=== PATIENT | female | born 1980 | race Caucasian/White ===

== ENCOUNTER 2018-02-23 06:46 | Emergency (ER) | payer MEDICAID ==
[~2018-02-23] VITALS: Ht 165.1 cm; Wt 81.0 kg
[2018-02-23 06:49] VITALS: BP 153/39
== END 2018-02-23 11:15 | disposition left against medical advice (07) ==
LOC: ER 06:47
DX: R07.89 Other chest pain (principal); Z53.21 Procedure and treatment not carried out due to patient leaving prior to being seen by health care provider
CPT/HCPCS: 93005; 99281

== ENCOUNTER 2020-09-08 01:29 | Emergency (ER) | payer MEDICAID ==
[~2020-09-08] VITALS: Ht 162.6 cm; Wt 70.0 kg
[2020-09-08 01:36] VITALS: BP 117/76
--- NOTE | 2020-09-08 01:54 | NUR ---
DR. MCGEE AT BEDSIDE TRYING TO ASSESS PATIENT, PATIENT YELLING OUT BAD WORDS NOT ANSWERING QUESTIONS WHEN ASKED BY
[2020-09-08] MEDS ORDERED: OLANZapine 5mg rapidly disint. tablet PO ONE ×2 (01:55→02:10)
[2020-09-08] MEDS ORDERED: MIDAZolam 5mg/ml 2ml vial IM ONE (02:20)
[2020-09-08] MEDS ORDERED: BAC10T PO (02:26)
[2020-09-08 02:43] LABS: BASOPHILS % (AUTO) 0.5 % (0-1); EOSINOPHILS # (AUTO) 0.2 X10'3 (0-0.9); EOSINOPHILS % (AUTO) 1.8 % (0-6); HEMATOCRIT 45.1 % (35.0-45.0); HEMOGLOBIN 15.3 g/dl (12.0-16.0); LYMPHOCYTES # (AUTO) 2.1 X10'3 (1.1-4.8); LYMPHOCYTES % (AUTO) 22.4 % (21-51); MEAN CORPUSCULAR HEMOGLOBIN 33.7 PG (27.0-31.0); MEAN CORPUSCULAR VOLUME 99.1 FL (78-98); MEAN PLATELET VOLUME 9.8 FL (7.4-10.4); MONOCYTES # (AUTO) 1.1 X10'3 (0-0.9); MONOCYTES % (AUTO) 11.7 % (2-12); NEUTROPHILS # (AUTO) 5.9 X10'3 (1.8-7.7); NEUTROPHILS % (AUTO) 63.6 % (42-75); PLATELET COUNT 292 X10'3 (140-440); RED BLOOD COUNT 4.55 X10'6 (4.20-5.60); RED CELL DISTRIBUTION WIDTH 13.9 % (11.5-14.5); WHITE BLOOD COUNT 9.3 X10'3 (4.5-11.0)
[2020-09-08 02:47] LABS: URINE AMPHETAMINE SCREEN NEGATIVE (Neg); URINE BARBITUATE SCREEN NEGATIVE (Neg); URINE BENZODIAZEPINES SCREEN NEGATIVE (Neg); URINE CANNABINOID SCREEN POSITIVE (Neg); URINE COCAINE SCREEN NEGATIVE (Neg); URINE METHADONE SCREEN NEGATIVE (Neg); URINE OPIATE SCREEN NEGATIVE (Neg); URINE PHENCYCLIDINE SCREEN NEGATIVE (Neg)
--- NOTE | 2020-09-08 02:47 | NUR ---
patient provided a sandwich and juice
[2020-09-08 02:48] LABS: URINE HCG NEGATIVE (NEG)
[2020-09-08 02:51] LABS: ANION GAP 9 (8-16); BILIRUBIN,TOTAL 0.5 MG/DL (0.1-1.0); BLOOD UREA NITROGEN 13 MG/DL (7-18); BUN/CREATININE RATIO 19.4 (6.6-38.0); CALCIUM 9.6 MG/DL (8.5-10.1); CHLORIDE 102 MMOL/L (99-107); CREATININE 0.67 MG/DL (0.40-0.90); GLUCOSE 109 MG/DL (70-104); POTASSIUM 3.5 MMOL/L (3.5-5.1); SODIUM 135 MMOL/L (135-145); TOTAL CARBON DIOXIDE 24.1 MMOL/L (24-32); TOTAL PROTEIN 8.2 G/DL (6.4-8.2); eGFR > 90 ML/MIN
[2020-09-08 02:52] LABS: ALANINE AMINOTRANSFERASE 38 U/L (12-78); ALBUMIN 4.3 G/DL (3.4-5.0); ALBUMIN/GLOBULIN RATIO 1.1 (1.1-1.5); ALKALINE PHOSPHATASE 58 IU/L (46-116); ASPARTATE AMINO TRANSFERASE 29 U/L (10-37)
[2020-09-08 03:01] LABS: ETHANOL < 0.010 GM/DL (0.0-0.010)
--- NOTE | 2020-09-08 03:28 | NUR ---
patient in bed eyes closed covers on rr even un labored hob 30 degrees noobservable s/s of acute stress at this time will continue to monitor
--- NOTE | 2020-09-08 04:32 | NUR ---
patient in bed supine eyes closed knees bent rr even un labored no observable s/s of acute stress at this time will continue to monitor
--- NOTE | 2020-09-08 06:12 | NUR ---
patient still in bed covers on supine eyes closed rr even un labored no observable s/s of acute stress at this time will continue to monitor
--- NOTE | 2020-09-08 06:19 | NUR ---
sbar to yefri motta no questions or concerns after assuming care
--- NOTE | 2020-09-08 06:33 | NUR ---
PACKET SENT TO [facility]
--- NOTE | 2020-09-08 06:59 | NUR ---
PT SLEEPING QUIETLY AT THIS TIME.
--- NOTE | 2020-09-08 07:45 | NUR ---
pt father star called [phone]. hes talking with pt now.
[2020-09-08] MEDS ORDERED: baclofen 10mg tablet PO SCH (08:00)
--- NOTE | 2020-09-08 09:18 | NUR ---
Pt sister called, attempted to give pt phone to speak with her. Pt then threw phone across room.
--- NOTE | 2020-09-08 09:20 | NUR ---
Pt pacing in her room. Asking for her belongings and phone. Stating she "is ready to leave".
--- NOTE | 2020-09-08 09:31 | NUR ---
Pt requesting breakfast. Meal request form faxed to dietary.
--- NOTE | 2020-09-08 10:55 | NUR ---
[facility] AT BEDSIDE
== END 2020-09-08 12:03 | disposition home or self-care (01) ==
LOC: ER 01:30
DX: R46.2 Strange and inexplicable behavior (principal); R45.1 Restlessness and agitation; Z98.890 Other specified postprocedural states; Z79.899 Other long term (current) drug therapy
CPT/HCPCS: 36415; 80053; 80305; 80320; 81025; 84443; 85025; 96372; 99284; J2250

== ENCOUNTER 2023-02-14 13:37 | Emergency (ER) | payer MEDICAID ==
[~2023-02-14] VITALS: Ht 165.1 cm; Wt 61.1 kg
[~2023-02-14 13:37] MED LIST: BAC10T PO
[2023-02-14] MEDS ORDERED: sulfamethoxazole/trimethoprim DS (800/160mg) tablet PO ONE (14:40)
[2023-02-14] MEDS ORDERED: CefTRIAXone 2gm/D5W 50ml BAG 50 ML IV ONE (14:40)
[2023-02-14 15:11] LABS: BASOPHILS % (AUTO) 0.2 % (0-1); EOSINOPHILS % (AUTO) 0.2 % (0-6); HEMATOCRIT 44.3 % (35.0-45.0); HEMOGLOBIN 15.1 g/dl (12.0-16.0); LYMPHOCYTES # (AUTO) 1.1 X10'3 (1.1-4.8); LYMPHOCYTES % (AUTO) 11.1 % (21-51); MEAN CORPUSCULAR HGB CONC 34.1 g/dL (33.0-36.5); MEAN CORPUSCULAR VOLUME 93.9 FL (78-98); MONOCYTES # (AUTO) 1.4 X10'3 (0-0.9); NEUTROPHILS # (AUTO) 7.4 X10'3 (1.8-7.7); NEUTROPHILS % (AUTO) 74.5 % (42-75); PLATELET COUNT 236 X10'3 (140-440); RED BLOOD COUNT 4.72 X10'6 (4.20-5.60); WHITE BLOOD COUNT 9.9 X10'3 (4.5-11.0)
[2023-02-14 15:27] LABS: ALANINE AMINOTRANSFERASE 23 U/L (12-78); ALBUMIN 3.7 G/DL (3.4-5.0); ALBUMIN/GLOBULIN RATIO 0.9 (1.1-1.5); ALKALINE PHOSPHATASE 75 IU/L (46-116); ANION GAP 10 (8-16); ASPARTATE AMINO TRANSFERASE 17 U/L (10-37); BILIRUBIN,TOTAL 0.5 MG/DL (0.1-1.0); BLOOD UREA NITROGEN 8 MG/DL (7-18); CALCIUM 9.4 MG/DL (8.5-10.1); CHLORIDE 99 MMOL/L (99-107); CREATININE 0.47 MG/DL (0.40-0.90); GLUCOSE 117 MG/DL (70-104); POTASSIUM 3.5 MMOL/L (3.5-5.1); SODIUM 133 MMOL/L (135-145); TOTAL CARBON DIOXIDE 23.7 MMOL/L (24-32); TOTAL PROTEIN 7.6 G/DL (6.4-8.2); eGFR > 90 ML/MIN
[2023-02-14] MEDS ORDERED: SULF1TAB49 PO (16:00)
[2023-02-14] MEDS ORDERED: LIDOcaine 1% W/epiNEPHrine 1:100,000 20ml vial SQ ONE (16:10)
[2023-02-14] MEDS ORDERED: LIDOCAINE 2%/EPI 1:100,000 inj. Multi-dose 20 ML VIAL SQ ONE (16:10)
[2023-02-14 16:32] VITALS: BP 95/58
[2023-02-14] MEDS ORDERED: HYDR-3973 PO (21:49)
== END 2023-02-14 16:34 | disposition home or self-care (01) ==
LOC: ER 13:38
DX: L02.511 Cutaneous abscess of right hand (principal); L03.113 Cellulitis of right upper limb; Z98.890 Other specified postprocedural states; Z79.899 Other long term (current) drug therapy
CPT/HCPCS: 36415; 80053; 85025; 96365; 99284; J0696

== ENCOUNTER 2024-03-17 23:45 | Inpatient (IN) | payer MEDICAID ==
[~2024-03-17] VITALS: Ht 165.1 cm; Wt 63.0 kg
[~2024-03-17 23:45] MED LIST changes: +HYDR-3973 PO
[2024-03-18] VITALS (9 sets, daily range): BP systolic 83–105; BP diastolic 38–60; PULSE 62–107; RESP 16–19; TEMP 96.9–98.2; O2SAT 95–100
[2024-03-18 01:32] LABS: EOSINOPHILS # (AUTO) 0.2 X10'3 (0-0.9); HEMOGLOBIN 13.9 g/dl (12.0-16.0); MEAN CORPUSCULAR HGB CONC 33.4 g/dL (33.0-36.5); MONOCYTES % (AUTO) 10.1 % (2-12)
[2024-03-18 01:34] LABS: HCG SERUM QL NEGATIVE
[2024-03-18 01:36] LABS: BASOPHILS # (AUTO) 0.1 X10'3 (0-0.2); BASOPHILS % (AUTO) 0.7 % (0-1); EOSINOPHILS % (AUTO) 2.2 % (0-6); HEMATOCRIT 41.7 % (35.0-45.0); LYMPHOCYTES # (AUTO) 1.6 X10'3 (1.1-4.8); LYMPHOCYTES % (AUTO) 14.7 % (21-51); MEAN CORPUSCULAR HEMOGLOBIN 30.9 PG (27.0-31.0); MEAN CORPUSCULAR VOLUME 92.5 FL (78-98); MEAN PLATELET VOLUME 9.8 FL (7.4-10.4); MONOCYTES # (AUTO) 1.1 X10'3 (0-0.9); NEUTROPHILS % (AUTO) 72.3 % (42-75); PLATELET COUNT 262 X10'3 (140-440); RED BLOOD COUNT 4.51 X10'6 (4.20-5.60)
[2024-03-18 01:50] LABS: ALBUMIN 3.9 G/DL (3.4-5.0); ANION GAP 11 (8-16); BLOOD UREA NITROGEN 14 MG/DL (7-18); BUN/CREATININE RATIO 24.1 (10.0-20.0); CALCIUM 8.6 MG/DL (8.5-10.1); CHLORIDE 106 MMOL/L (99-107); CREATININE 0.58 MG/DL (0.40-0.90); ETHANOL < 10 MG/DL (<10); GLUCOSE 121 MG/DL (70-104); SODIUM 144 MMOL/L (135-145); THYROID STIMULATING HORMONE 2.16 ulU/ml (0.34-4.50); TOTAL CARBON DIOXIDE 26.6 MMOL/L (24-32); eCRCL 113 ML/MIN; eGFR > 90 ML/MIN
[2024-03-18] MEDS: normal saline 1000ml 1,000 ML IV ONE (02:53)
[2024-03-18] MEDS: atropine 1 MG/1 ML vial IV ONE (03:36)
[2024-03-18 05:28] LABS: BILIRUBIN,URINE NEGATIVE (Neg); CLARITY,URINE SLIGHTLY CLOUDY (Clear); COLOR,URINE YELLOW (Yellow); GLUCOSE, URINE NEGATIVE (Neg); KETONES,URINE >=80 mg/dl (Neg); LEUKOCYTE ESTERASE ,URINE NEGATIVE (Neg); NITRITES, URINE NEGATIVE (Neg); OCCULT BLOOD,URINE SMALL (Neg); PROTEIN,URINE NEGATIVE (Neg); UROBILINOGEN,URINE 0.2 E.U/dL (0.2-1.0)
[2024-03-18 05:37] LABS: URINE AMPHETAMINE SCREEN POSITIVE (Neg); URINE BARBITUATE SCREEN NEGATIVE (Neg); URINE BENZODIAZEPINES SCREEN NEGATIVE (Neg); URINE CANNABINOID SCREEN POSITIVE (Neg); URINE COCAINE SCREEN NEGATIVE (Neg); URINE METHADONE SCREEN NEGATIVE (Neg); URINE OPIATE SCREEN NEGATIVE (Neg); URINE PHENCYCLIDINE SCREEN NEGATIVE (Neg)
[2024-03-18 05:42] LABS: UA COLLECTION TYPE STRAIGHT CATH
[2024-03-18 05:44] LABS: BACTERIA,URINE NONE SEEN /HPF (Neg); MUCUS STRANDS NONE SEEN /LPF (Neg); RBC,URINE 0-2 /HPF (0-2); SQUAMOUS EPITHELIAL CELL,UR MODERATE /LPF (FEW); WBC,URINE 0-4 /HPF (0-4)
[2024-03-18] MEDS ORDERED: potassium Cl 40MEQ/1/2NS 520ml 520 ML IV PRN (08:05)
[2024-03-18] MEDS ORDERED: magnesium 2GM in 50ml NS 50 ML IV PRN (08:05)
[2024-03-18] MEDS ORDERED: ondansetron/PF 4mg/2ml inj IV PRN (08:05)
[2024-03-18] MEDS ORDERED: magnesium 4gm in 100ml NS 100 ML IV PRN (08:05)
[2024-03-18] MEDS ORDERED: potassium Cl 20 mEq SR tablet PO PRN ×2 (08:05)
[2024-03-18] MEDS ORDERED: mag hydrox/Alum hydrox/simeth 30ml oral suspension PO PRN (08:05)
[2024-03-18] MEDS ORDERED: magnesium Cl slow-release 64mg tablet PO PRN (08:05)
[2024-03-18] MEDS ORDERED: magnesium hydroxide 30ml (MOM) UD suspension PO PRN (08:05)
[2024-03-18] MEDS ORDERED: acetaminophen 325mg tablet PO PRN (08:05)
[2024-03-18] MEDS: normal saline 1000ml 1,000 ML IV SCH (08:54)
[2024-03-18] MEDS: piperacillin/tazo 4.5gm/100ml 100 ML IV ONE (09:16)
[2024-03-18 10:19] LABS: SALICYLATE 4.4 MG/DL (4.0-20.0)
[2024-03-18] MEDS ORDERED: ipratropium/albuterol 3ml nebule NEB PRN (11:20)
[2024-03-18] MEDS ORDERED: albuterol 2.5 MG/3 ML nebule NEB PRN (11:20)
[2024-03-18 12:17] LABS: ETHANOL < 10 MG/DL (<10); SALICYLATE 3.5 MG/DL (4.0-20.0)
[2024-03-18 12:23] LABS: ACETAMINOPHEN < 2.0 UG/ML (10-30)
[2024-03-18] MEDS ORDERED: haloperidol lactate 5mg/ml inj IM PRN (14:05)
[2024-03-18 14:30] LABS: APTT 27 SECONDS (22-32); PROTHROMBIN TIME 10.3 SECONDS (9.0-12.0)
[2024-03-18 14:34] LABS: ALANINE AMINOTRANSFERASE 11 U/L (12-78); ALBUMIN 3.1 G/DL (3.4-5.0); ALKALINE PHOSPHATASE 56 IU/L (46-116); ANION GAP 9 (8-16); ASPARTATE AMINO TRANSFERASE 22 U/L (10-37); BILIRUBIN,TOTAL 0.6 MG/DL (0.1-1.0); BLOOD UREA NITROGEN 9 MG/DL (7-18); BUN/CREATININE RATIO 17.3 (10.0-20.0); CALCIUM 8.2 MG/DL (8.5-10.1); CHLORIDE 108 MMOL/L (99-107); CREATININE 0.52 MG/DL (0.40-0.90); GLUCOSE 91 MG/DL (70-104); POTASSIUM 4.1 MMOL/L (3.5-5.1); SODIUM 143 MMOL/L (135-145); TOTAL CARBON DIOXIDE 26.3 MMOL/L (24-32); TOTAL PROTEIN 6.2 G/DL (6.4-8.2); eCRCL 126 ML/MIN; eGFR > 90 ML/MIN
[2024-03-18] MEDS ORDERED: DULO20CA18 PO (16:03)
[2024-03-18] MEDS ORDERED: CHOL100012 PO (16:03)
[2024-03-18] MEDS ORDERED: BUPR1FIL3 (16:03)
[2024-03-18] MEDS ORDERED: BACL10TA2 PO (16:03)
[2024-03-18] MEDS ORDERED: SERT-433 PO (16:03)
[2024-03-18] MEDS ORDERED: CLON0.1T2 PO (16:03)
[2024-03-18] MEDS ORDERED: ARIP2TAB37 PO (16:03)
[2024-03-18] MEDS ORDERED: BUPR1FIL20 SL (16:03)
[2024-03-18] MEDS: piperacillin/tazo 3.375gm/50ml 50 ML IV SCH (17:35)
[2024-03-18] MEDS: K and/or MAG REPLACEMENT MC SCH (20:00)
[2024-03-18] MEDS: thiamine 100mg/ml 2ml inj. IV SCH (21:00)
[2024-03-18] MEDS: enoxaparin 40mg/0.4ml syringe SQ SCH (21:19)
[2024-03-18] MEDS: Melatonin 3mg tablet PO ONE (21:20)
[2024-03-19 07:00] VITALS: BP 83/35; PULSE 72; RESP 19; TEMP 97.6; O2SAT 99
[2024-03-19 07:02] LABS: BASOPHILS # (AUTO) 0.1 X10'3 (0-0.2); BASOPHILS % (AUTO) 1.1 % (0-1); EOSINOPHILS # (AUTO) 0.2 X10'3 (0-0.9); HEMATOCRIT 34.9 % (35.0-45.0); HEMOGLOBIN 11.8 g/dl (12.0-16.0); LYMPHOCYTES # (AUTO) 2.3 X10'3 (1.1-4.8); LYMPHOCYTES % (AUTO) 46.3 % (21-51); MEAN CORPUSCULAR HEMOGLOBIN 31.8 PG (27.0-31.0); MEAN CORPUSCULAR HGB CONC 33.9 g/dL (33.0-36.5); MONOCYTES # (AUTO) 0.6 X10'3 (0-0.9); MONOCYTES % (AUTO) 12.9 % (2-12); NEUTROPHILS # (AUTO) 1.7 X10'3 (1.8-7.7); NEUTROPHILS % (AUTO) 34.7 % (42-75); PLATELET COUNT 228 X10'3 (140-440); RED BLOOD COUNT 3.71 X10'6 (4.20-5.60); RED CELL DISTRIBUTION WIDTH 13.8 % (11.5-14.5)
[2024-03-19 07:15] LABS: APTT 27 SECONDS (22-32)
[2024-03-19 07:26] LABS: LARGE PLATELETS FEW; PLATELET ESTIMATE NORMAL
[2024-03-19 07:29] LABS: ALANINE AMINOTRANSFERASE 13 U/L (12-78); ALBUMIN 2.9 G/DL (3.4-5.0); ALBUMIN/GLOBULIN RATIO 0.9 (1.1-1.5); ALKALINE PHOSPHATASE 57 IU/L (46-116); ANION GAP 4 (8-16); ASPARTATE AMINO TRANSFERASE 15 U/L (10-37); BILIRUBIN,TOTAL 0.2 MG/DL (0.1-1.0); BLOOD UREA NITROGEN 14 MG/DL (7-18); CALCIUM 8.6 MG/DL (8.5-10.1); CHLORIDE 110 MMOL/L (99-107); CHOL/HDL RATIO 2.6 (0.00-4.99); CHOLESTEROL 130 MG/DL (0-200); GLUCOSE 107 MG/DL (70-104); HDL CHOLESTEROL 50 MG/DL (35-60); LDL CHOLESTEROL 66 MG/DL (50-100); MAGNESIUM 1.9 MG/DL (1.5-2.4); POTASSIUM 4.1 MMOL/L (3.5-5.1); SODIUM 139 MMOL/L (135-145); TOTAL CARBON DIOXIDE 24.8 MMOL/L (24-32); TOTAL PROTEIN 6.1 G/DL (6.4-8.2); TRIGLYCERIDES 68 MG/DL (20-135); eCRCL 131 ML/MIN; eGFR > 90 ML/MIN
[2024-03-19 07:31] LABS: INR 0.9 INR
[2024-03-19 07:35] LABS: HEMOGLOBIN A1C 5.3 % (4.5-6.2)
[2024-03-19 08:00] VITALS: RESP 16; O2SAT 96
[2024-03-19] MEDS: multivitamins, therapeutics tablet PO SCH (08:00)
[2024-03-19] MEDS: folic acid 1mg/0.2ml inj IV SCH (10:57)
[2024-03-19] MEDS: pantoprazole 40 MG vial IV SCH (10:57)
[2024-03-19 11:00] VITALS: BP 80/39; PULSE 74; RESP 14; TEMP 98.1; O2SAT 100
[2024-03-19 11:18] VITALS: PULSE 68; RESP 18; O2SAT 97
[2024-03-19 11:46] VITALS: BP_SYST 84; BP_SYST 92; BP_DIAS 39; BP_DIAS 45
[2024-03-19] MEDS: normal saline 1000ml 1,000 ML IV ONE ×2 (12:18→13:23)
[2024-03-19 13:31] VITALS: BP 100/50
[2024-03-19] MEDS ORDERED: AMOX-580 PO (13:57)
[2024-03-19] MEDS ORDERED: LACT1CAP26 PO (13:57)
[2024-03-22] MEDS ORDERED: thiamine 100mg tablet PO SCH (08:00)
[2024-03-23] MEDS ORDERED: folic acid 1mg tablet PO SCH (08:00)
== END 2024-03-19 15:42 | disposition home or self-care (01) | DRG 812 ==
LOC: ER 23:45 → ED HOLD 03-18 08:33 → PCU 3S 03-18 14:04
PROVIDERS: ADMIT Family Medicine; ATTEND Family Medicine
DX: T42.8X1A Poisoning by antiparkinsonism drugs and other central muscle-tone depressants, accidental (unintentional), initial encounter (principal); J69.0 Pneumonitis due to inhalation of food and vomit; G93.41 Metabolic encephalopathy; F19.10 Other psychoactive substance abuse, uncomplicated; Y92.89 Other specified places as the place of occurrence of the external cause; Z79.899 Other long term (current) drug therapy
CPT/HCPCS: 36415; 70450; 71045; 80048; 80053; 80061; 80305; 80320; 80329; 81001; 82948; 83036; 83605; 83735; 84100; 84145; 84443; 84703; 85008; 85025; 85610; 85730; 87040; 87081; 93005; 94760; 99291; 99292; A4615; C1758; C9113; G0378; J0461; J1650; J2543; J3411; J3490; J7030